=== PATIENT | female | born 1970 | race Caucasian/White ===

== ENCOUNTER 2017-04-06 22:30 | Emergency (ER) | payer MEDICAID ==
[2017-04-06 23:22] VITALS: BMI 25.9
[2017-04-06 23:25] VITALS: TEMP 98.6; O2SAT 100
[2017-04-06] MEDS ORDERED: Sodium Chloride 0.9% 1,000 ML IV STA (23:52)
[2017-04-06] MEDS ORDERED: diaZEpam 10 mg/2 ml Inj IVP ONE (23:56)
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
[2017-04-07 00:29] LABS: ADD MANUAL DIFF? NO
[2017-04-07 00:34] LABS: BASO # 0.01 K/mm3 (0.0-2.0); BASO % 0.2 % (0.0-3.0); EOS # 0.2 (0.0-0.7); EOS % 2.6 % (1.5-5.0); GRAN # 2.45 (1.4-6.5); GRAN % 42.1 % (50.0-68.0); HEMATOCRIT 34.5 % (36.0-48.0); LYMPH # 2.8 (1.2-3.4); LYMPH % 47.7 % (22.0-35.0); MEAN CELL VOLUME 70.4 fL (80.0-105.0); MEAN CORPUSCULAR HEMOGLOBIN 22.4 pg (25.0-35.0); MEAN CORPUSCULAR HGB CONC 31.9 g/dl (31.0-37.0); MONO # 0.4 (0.1-0.6); MONO % 7.4 % (1.0-6.0); PLATELET COUNT 292 10^3/uL (120.0-450.0); RED CELL DISTRIBUTION WIDTH 17.4 % (11.5-14.5); WHITE BLOOD COUNT 5.8 10^3/ul (4.5-11.0)
[2017-04-07 00:35] LABS: PH,URINE 6.5 (4.7-8.0); URINE BILIRUBIN NEGATIVE (NEGATIVE); URINE BLOOD SMALL (NEGATIVE); URINE GLUCOSE (UA) NEGATIVE (NEGATIVE); URINE KETONE NEGATIVE (NEGATIVE); URINE LEUKOCYTE ESTERASE NEGATIVE Leu/uL (NEGATIVE); URINE PROTEIN NEGATIVE mg/dL (<30 mg/dL); URINE UROBILINOGEN 0.2 E.U./dL (<1 E.U./dL)
[2017-04-07 00:58] LABS: ALB/GLOB RATIO 1.3 (1.1-1.8); ALKALINE PHOSPHATASE 50 U/L (38-133); ALT/SGPT 29 U/L (7-56); AST/SGOT 21 U/L (15-39); BILIRUBIN,TOTAL 0.2 mg/dL (0.2-1.3); BLOOD UREA NITROGEN 11 mg/dL (7-21); CARBON DIOXIDE 27 mmol/L (21-33); CHLORIDE 103 mmol/L (95-110); GFR AFRICAN-AMERICAN > 60; GLUCOSE,RANDOM 106 mg/dL (70-110); LIPASE 106 U/L (23-300); POTASSIUM 4.1 mmol/L (3.6-5.0); SODIUM 140 mmol/L (132-148); TOTAL PROTEIN 7.1 g/dL (5.8-8.3); URINE APPEARANCE CLEAR (CLEAR); URINE COLOR YELLOW (YELLOW)
[2017-04-07 01:01] LABS: URINE EPITHELIAL CELLS 0 - 2 /hpf (0-5); URINE RBC 0 - 2 /hpf (0-2); URINE WBC 0 - 2 /hpf (0-6)
--- NOTE | 2017-04-07 03:52 | CT ---
EXAM: CT Chest With Intravenous Contrast CLINICAL HISTORY: 46 years old, female; Pain; Abdominal pain; Generalized; Chest pain; Additional info: Abdominal pain/diarrhea/vomiting TECHNIQUE: Axial computed tomography images of the chest with intravenous contrast. This CT exam was performed using one or more of the following dose reduction techniques: automated exposure control, adjustment of the mA and/or kV according to patient size, and/or use of iterative reconstruction technique. Coronal and sagittal reformatted images were created and reviewed. CONTRAST: 140 mL of OMNI 350 administered intravenously. COMPARISON: No relevant prior studies available. FINDINGS: Limitations: Motion artifact - mild. Lungs: Minimal atelectasis. No consolidation. Pleural space: No pneumothorax. No significant effusion. Heart: No cardiomegaly. No significant pericardial effusion. Bones/joints: No acute fracture. Soft tissues: Unremarkable. Vasculature: Unremarkable. No aneurysm. Lymph nodes: No pathologically enlarged lymph nodes. IMPRESSION: 1.No acute findings. 2.Non-acute findings are described above. EXAM: CT Abdomen and Pelvis With Intravenous Contrast CLINICAL HISTORY: 46 years old, female; Pain; Abdominal pain; Generalized; Chest pain; Additional info: Abdominal pain/diarrhea/vomiting TECHNIQUE: Axial computed tomography images of the abdomen and pelvis with intravenous contrast. This CT exam was performed using one or more of the following dose reduction techniques: automated exposure control, adjustment of the mA and/or kV according to patient size, and/or use of iterative reconstruction technique. Coronal and sagittal reformatted images were created and reviewed. CONTRAST: 140 mL of OMNI 350 administered intravenously. COMPARISON: No relevant prior studies available. FINDINGS: Limitations: Motion artifact - mild. ABDOMEN: Liver: Unremarkable. No mass. Gallbladder and bile ducts: Gallbladder not visualized. No ductal dilation. Pancreas: No ductal dilation. No mass. Spleen: Mild splenomegaly, AP dimension. Adrenals: No mass. Kidneys and ureters: No mass. No hydronephrosis. Stomach and bowel: No definite mural thickening. No obstruction. Appendix: No findings to suggest acute appendicitis. PELVIS: Bladder: Unremarkable. Reproductive: IUD. 2.4 x 1.6 x 2.5 cm hypodense lesion within RIGHT ovary. 1.9 x 1.7 x 1.6 cm hypodense lesion within RIGHT ovary. ABDOMEN and PELVIS: Intraperitoneal space: No significant fluid collection. No free air. Bones/joints: No acute fracture. Soft tissues: Linear scar lower anterior abdominal/pelvic wall. Vasculature: Unremarkable. No aneurysm. Lymph nodes: No pathologically enlarged lymph nodes. IMPRESSION: 1. Probable RIGHT ovarian cysts. Consider ultrasound. 2. Incidental/non-acute findings are described above.
[2017-04-07 04:17] VITALS: BP 137/70; PULSE 70; RESP 17
--- NOTE | 2017-04-07 08:36 | RAD ---
PROCEDURE: Radiographs of the Lumbar Spine. HISTORY: lower back pain COMPARISON: No prior. FINDINGS: BONES: Normal curvature appreciated there is a borderline spondylolisthesis at L4-5, with L4 appearing marginally anterior to L5. No suspicious lytic or blastic change. DISC SPACES: Unremarkable. OTHER FINDINGS: Iodinated contrast material is identified excreted at the bilateral kidneys and ureters as well as in a distended urinary urinary bladder. IMPRESSION: Borderline spondylolisthesis L4-5. No definite acute fracture appreciated or suspicious lytic or blastic change. Follow-up MRI or CT may be performed if clinically warranted.
== END 2017-04-07 04:17 | disposition home or self-care (01) ==
LOC: ED 22:30
DX: S29.9XXA Unspecified injury of thorax, initial encounter (principal); V43.52XA Car driver injured in collision with other type car in traffic accident, initial encounter; Y92.410 Unspecified street and highway as the place of occurrence of the external cause; K29.70 Gastritis, unspecified, without bleeding; R11.2 Nausea with vomiting, unspecified; M54.5 Low back pain
CPT/HCPCS: 71260; 72110; 74177; 80053; 81001; 83690; 85025; 96361; 96374; 96375; 99284; J1885; J3360; J7040; Q9967

== ENCOUNTER 2017-07-15 17:52 | Inpatient (IN) | payer MEDICAID ==
[2017-07-15 17:52] VITALS: BMI 25.9
[2017-07-15 18:48] LABS: BASO # 0.01 K/mm3 (0.0-2.0); BASO % 0.2 % (0.0-3.0); EOS # 0.1 (0.0-0.7); EOS % 2.4 % (1.5-5.0); GRAN # 2.68 (1.4-6.5); GRAN % 54.5 % (50.0-68.0); HEMATOCRIT 38.1 % (36.0-48.0); LYMPH # 1.8 (1.2-3.4); LYMPH % 37.2 % (22.0-35.0); MEAN CELL VOLUME 73.6 fl (80.0-105.0); MEAN CORPUSCULAR HEMOGLOBIN 23.7 pg (25.0-35.0); MEAN CORPUSCULAR HGB CONC 32.3 g/dl (31.0-37.0); MONO # 0.3 (0.1-0.6); MONO % 5.7 % (1.0-6.0); PLATELET COUNT 259 10^3/uL (120.0-450.0); RED CELL DISTRIBUTION WIDTH 17.1 % (11.5-14.5); WHITE BLOOD COUNT 4.9 10^3/ul (4.5-11.0)
[2017-07-15 18:58] LABS: ALB/GLOB RATIO 1.3 (1.1-1.8); ALKALINE PHOSPHATASE 49 U/L (38-126); ALT/SGPT 45 U/L (7-56); AST/SGOT 19 U/L (14-36); BILIRUBIN,TOTAL 0.4 mg/dL (0.2-1.3); BLOOD UREA NITROGEN 19 mg/dL (7-21); CALCIUM 9.3 mg/dL (8.4-10.5); CARBON DIOXIDE 32 mmol/L (21-33); CHLORIDE 107 mmol/L (95-110); GFR AFRICAN-AMERICAN > 60; GLUCOSE,RANDOM 126 mg/dL (70-110); POTASSIUM 4.2 mmol/L (3.6-5.0); SODIUM 145 mmol/L (132-148); TOTAL PROTEIN 7.7 g/dL (5.8-8.3)
--- NOTE | 2017-07-15 19:40 | CARD ---
APPROVED REPORT EKG Measurement Heart [id number] <Conclusion> Normal sinus rhythm with sinus arrhythmia Normal ECG
[2017-07-15 19:47] LABS: PH,URINE 7.5 (4.7-8.0); URINE BILIRUBIN NEGATIVE (NEGATIVE); URINE BLOOD MODERATE (NEGATIVE); URINE GLUCOSE (UA) NEGATIVE (NEGATIVE); URINE KETONE NEGATIVE (NEGATIVE); URINE LEUKOCYTE ESTERASE NEGATIVE Leu/uL (NEGATIVE); URINE PROTEIN NEGATIVE mg/dL (<30 mg/dL); URINE UROBILINOGEN 0.2 E.U./dL (<1 E.U./dL)
[2017-07-15 19:58] LABS: URINE APPEARANCE SL CLOUDY (CLEAR); URINE COLOR YELLOW (YELLOW)
[2017-07-15 20:02] LABS: URINE BACTERIA MOD (NEG)
[2017-07-15 20:03] LABS: URINE AMORPHOUS SEDIMENT MODERATE
--- NOTE | 2017-07-15 20:35 | ED PDOC ---
Arrival/HPI - General Chief Complaint: Psychiatric Evaluation Time Seen by Provider: 07/15/17 18:21 Historian: Patient - History of Present Illness Narrative History of Present Illness (Text): 07/15/17 20:35 46-year-old female presents today sent in by her primary care physician for depression. Patient is stating that she wants to and she has no reason to live. Patient denies chest pain or shortness of breath. Denies abdominal pain. Denies dizziness or weakness. Complaining of suicidal ideations. Patient states she has no reason to live because her and her son left her. Past Medical History - Provider Review Nursing Documentation Reviewed: Yes - Travel History Have you recently traveled outside [place] w/in the past 3 mons?: No - Infectious Disease Hx of Infectious Diseases: None - Past Medical History Past Medical History: No Previous - Cardiac Hx Hypertension: Yes - Hematological/Oncological Hx Anemia: Yes - Psychiatric Hx Depression: No Hx Substance Use: No - Past Surgical History Past Surgical History: No Previous - Surgical History Hx Cholecystectomy: Yes - Anesthesia Hx Anesthesia: Yes Hx Anesthesia Reactions: No - Suicidal Assessment Suicide Risk Precautions: None Family/Social History - Physician Review Nursing Documentation Reviewed: Yes Family/Social History: Unknown Family HX Smoking Status: Never Smoked Hx Alcohol Use: No Hx Substance Use: No Hx Substance Use Treatment: No Allergies/Home Meds Allergies/Adverse Reactions: Allergies No Known Allergies Allergy (Verified 07/15/17 18:13) Home Medications: Home Meds Medication Instructions Recorded Confirmed No Known Home Med 07/15/17 07/15/17 Review of Systems - Review of Systems Constitutional: absent: Fatigue, Fevers Respiratory: absent: SOB, Cough Cardiovascular: absent: Chest Pain, Palpitations Gastrointestinal: absent: Abdominal Pain, Nausea, Vomiting Genitourinary Female: absent: Dysuria Musculoskeletal: absent: Arthralgias Skin: absent: Rash, Pruritis Psychiatric: Depression, Suicidal Ideation Physical Exam Vital Signs Reviewed: Yes Vital Signs Temp Pulse Resp BP Pulse Ox 07/15/17 19:00 77 17 134/68 98 07/15/17 18:21 99.7 F H 80 20 157/105 H 98 Temperature: Afebrile Blood Pressure: Hypertensive Pulse: Regular Respiratory Rate: Normal Appearance: Positive for: Well-Appearing, Non-Toxic, Comfortable Pain Distress: None Mental Status: Positive for: Alert and Oriented X 3 - Systems Exam Head: Present: Atraumatic Mouth: Present: Moist Mucous Membranes Respiratory/Chest: Present: Clear to Auscultation Cardiovascular: Present: Regular Rate and Rhythm Abdomen: No: Tenderness Neurological: Present: GCS=15 Skin: Present: Warm, Dry, Normal Color. No: Rashes Psychiatric: Present: Alert, Oriented x 3 Medical Decision Making ED Course and Treatment: 07/15/17 20:36 Patient is nontoxic well-appearing in no distress vital signs are stable. CBC WNL CMP WNL Tylenol WNL Salicylate WNL Alcohol level WNL Urine drug screen wnl UA; + blood cxr: wnl ekg normal sinus rhythm with sinus arrhythmia at 78beats per minute no ST elevations normal axis pt is medically cleared for PES evaluation Patient was seen and evaluated by PES screener: lillie patient signed voluntarily to psychiatric floor Impression;Depression admit to behavioral health floor - Lab Interpretations Lab Results: 07/15/17 18:35 07/15/17 18:35 Lab Results 07/15/17 19:15: Urine Opiates Screen Negative, Urine Methadone Screen Negative, Ur Barbiturates Screen Negative, Ur Phencyclidine Scrn Negative, Ur Amphetamines Screen Negative, U Benzodiazepines Scrn Negative, U Oth Cocaine Metabols Negative, U Cannabinoids Screen Negative 07/15/17 19:15: Urine Color Yellow, Urine Appearance Sl cloudy, Urine pH 7.5, Ur Specific [place] 1.010, Urine Protein Negative, Urine Glucose (UA) Negative, Urine Ketones Negative, Urine Blood Moderate H, Urine Nitrate Negative, Urine Bilirubin Negative, Urine Urobilinogen 0.2, Ur Leukocyte Esterase Negative, Urine RBC 2 - 5, Urine WBC 2 - 5, Ur Epithelial Cells 3 - 4, Amorphous Sediment Moderate, Urine Bacteria Mod 07/15/17 18:35: Alcohol, Quantitative < 10 07/15/17 18:35: Salicylates < 1 L, Acetaminophen < 10.0 L 07/15/17 18:35: Sodium 145, Potassium 4.2, Chloride 107, Carbon Dioxide 32, Anion Gap 10, BUN 19, Creatinine 0.8, Est GFR ( Amer) > 60, Est GFR (Non- Af Amer) > 60, Random Glucose 126 H, Calcium 9.3, Total Bilirubin 0.4, AST 19, ALT 45, Alkaline Phosphatase 49, Total Protein 7.7, Albumin 4.3, Globulin 3.4, Albumin/Globulin Ratio 1.3 07/15/17 18:35: WBC 4.9, RBC 5.18, Hgb 12.3, Hct 38.1, MCV 73.6 L, MCH 23.7 L, MCHC 32.3, RDW 17.1 H, Plt Count 259, Gran % 54.5, Lymph % (Auto) 37.2 H, [place] % (Auto) 5.7, Eos % (Auto) 2.4, Baso % (Auto) 0.2, Gran # 2.68, Lymph # 1.8, [place]ukes # 0.3, Eos # 0.1, Baso # 0.01 - RAD Interpretation Radiology Orders: 07/15/17 18:23 CHEST PORTABLE [RAD] Stat - Medication Orders Current Medication Orders: Acetaminophen (Tylenol 325mg Tab) 650 mg PO Q4H PRN PRN Reason: Pain, Mild (1-3) Al Hydrox/Mg Hydrox/Simethicone (Maalox Plus 30 Ml) 30 ml PO DAILY PRN PRN Reason: Upset Stomach Citalopram Hydrobromide (Celexa) 10 mg PO DAILY LIBIA Lorazepam (Ativan) 1 mg PO HS LIBIA PRN Reason: Protocol Magnesium Hydroxide (Milk Of Magnesia) 30 ml PO DAILY PRN PRN Reason: Constipation Zaleplon (Sonata) 5 mg PO HS PRN PRN Reason: Insomnia Disposition/Present on Arrival - Present on Arrival Any Indicators Present on Arrival: No History of DVT/PE: No History of Uncontrolled Diabetes: No Urinary Catheter: No History of Decub. Ulcer: No History Surgical Site Infection Following: None - Disposition Have Diagnosis and Disposition been Completed?: Yes Diagnosis: Depression Disposition: HOSPITALIZED Disposition Time: 21:00 Patient Plan: Admission Patient Problems: Current Active Problems Problem Status Onset Depression Acute Condition: FAIR
[2017-07-15] MEDS ORDERED: Magnesium Hydroxide Susp 30 ml UD PO PRN (21:08)
[2017-07-15] MEDS ORDERED: Alum-Mag Hydrox-Simethicone Susp (30 mL) PO PRN (21:08)
--- NOTE | 2017-07-16 00:06 | PCM.BM ---
<Terrence Whipple - Last Filed: 07/16/17 00:03> Treatment Plan Problems - Problems identified on initial assessmt DEPRESSION Date Initiated: 07/15/17 Time Initiated: 23:00 Assessment reference: NA Status: Active SUICIDAL IDEATION Date Initiated: 07/15/17 Time Initiated: 23:00 Assessment reference: NA Status: Active Treatment assets and liabiliti Patient Assests: adapts well, cooperative, educated, self-reliant, ADL independent, negotiates basic needs, cognitively intact Patient Liabilities: live alone, financial problems, medical problems - Milieu Protocol Maintain good personal hygiene: daily Encourage regular showers, every shift Remind patient to perform daily oral care, every shift Assist patient to perform ADL's Maintain personal safety: every shift Educate patient to report safety concerns to staff, every shift Monitor environment for contraband/sharps Medication safety: Monitor for expected outcome, potential side effects: every shift, Assess barriers to learning: every shift, Assess readiness for medication education: every shift Family Contact Family involvement: Famliy/SO not involved ( AND 2 SONS DOESN'T CARE FOR HER) Family contact: Patient agrees to contact Discharge/Continuing Care - Education Needs Education Needs: Patient Medication, Patient Diagnosis/Disease Process, Patient Coping Skills, Patient Placement options, Patient Community resources, Patient Activities of Daily Living, Patient Health Practices/Safety - Discharge Discharge Criteria: Tolerates medication w/o severe side effects, Free of Suicidal thoughts, Free of paranoid thoughts, Normal sleep pattern <Geovani Davies - Last Filed: 07/22/17 16:39> - Diagnosis (1) Depression Status: Acute Interventions: 07/22/17 16:39 * Assess/adjust medications daily and /or as needed * Discuss risks, benefits, side effects and alternatives of medications * See patient on an individual basis 7x/week to assess level of suicidal thoughts *
[2017-07-16 07:54] LABS: CHOLESTEROL 168 mg/dL (130-200); GLUCOSE,FASTING 95 mg/dL (65-110)
--- NOTE | 2017-07-16 08:55 | RAD ---
HISTORY: PEs COMPARISON: No prior. FINDINGS: LUNGS: No active pulmonary disease. PLEURA: No significant pleural effusion identified, no pneumothorax apparent. CARDIOVASCULAR: Normal. OSSEOUS STRUCTURES: No significant abnormalities. VISUALIZED UPPER ABDOMEN: Normal. OTHER FINDINGS: None. IMPRESSION: No active disease.
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
--- NOTE | 2017-07-17 21:07 | PN ---
SUBJECTIVE: The patient is a 46-year-old or Dutch female who had been depressed. She appears to be still melodramatic, lacking in insight, but less histrionic than yesterday. This was taken to me that her mood is improving somewhat. She is being maintained on Ativan 1 mg at bedtime, Celexa 10 mg per day, Effexor 37.5 mg per day, Risperdal 0.25 mg at bedtime. OBJECTIVE: Blood pressure 94/45, pulse 62, temperature 97, respiratory rate 20. ASSESSMENT AND PLAN: I have tried to convey to the patient that if she is able to maintain a state of mood stability and behavioral control over the weekend, she will be a candidate for discharge on Thursday. Geovani Davies MD/ PhD
[2017-07-18] MEDS: Pantoprazole 40 mg EC Tab PO SCH (09:59)
--- NOTE | 2017-07-18 16:41 | PCM.PYCHPN ---
Psychiatric Progress Note - Psychiatric Progress Note Patient seen today, length of contact: 25 min Patient Chief Complaint: "feeling good" Problems Identified/Issues Discussed: I recent notes and met with patient at bedside in the quiet room. Patient is fairly cooperative. I ask her questions about her orientation she is unaware of which month it is, states "I forget". However she is able to tell me that it is 2016. Patient is guarded and her affect is constricted though she tells me that she is feeling good. Reports that her medications are "OK". She denies any side effects. Indicate that she didn't go to sleep until 2 AM. Patient denies any suicidal thoughts and feels "safe on the unit". Staff notes indicate the patient seems brighter, more appropriate and pleasant. Seems anxious but cooperative. There are no behavioral issues overnight. Diagnostic Results: Major Depressive Disorder, Severe Medication Change: No Medical Record Reviewed: Yes Mental Status Examination - Cognitive Function Orientation: Person, Place Memory: Impaired Attention: Poor Concentration: Poor - Mood Mood: Other (feeling good) - Affect Affect: Constricted - Speech Speech: Soft - Suicidal Ideation Suicidal Ideation: No - Homicidal Ideation Homicidal Ideation: No Goal/Treatment Plan - Goal/Treatment Plan Progress Toward Problem(s) and Goals/Treatment Plan: * c/w current tx and plan * Vitals reviewed and noted below: Selected Entries 07/15/17 07/16/17 07/16/17 23:40 07:18 16:00 Temperature 98.1 F 97.8 F Pulse Rate 71 20 L 62 Respiratory 20 20 Rate Blood Pressure 146/69 97/45 L 94/45 L
[2017-07-19] MEDS: Pantoprazole 40 mg EC Tab PO SCH (08:28)
--- NOTE | 2017-07-19 09:40 | PCM.PYCHPN ---
Psychiatric Progress Note - Psychiatric Progress Note Patient seen today, length of contact: 25 min Patient Chief Complaint: "a little better" Problems Identified/Issues Discussed: I recent notes and met with patient at bedside. Patient is fairly cooperative however she remains guarded. She reports that she she feeling a little better. Her affect is constricted. Feels medications make her tired, denies other side effects, new discomfort or pain. Patient denies any suicidal thoughts. Staff notes indicate the patient has been labile and argumentative at times. She attends group but minimally participates. Seems anxious. There were no behavioral issues overnight. Diagnostic Results: Major Depressive Disorder, Severe Medication Change: No Medical Record Reviewed: Yes Mental Status Examination - Cognitive Function Orientation: Person, Place Memory: Impaired Attention: Poor Concentration: Poor - Mood Mood: Other ("a little better") - Affect Affect: Constricted - Speech Speech: Soft - Suicidal Ideation Suicidal Ideation: No - Homicidal Ideation Homicidal Ideation: No Goal/Treatment Plan - Goal/Treatment Plan Progress Toward Problem(s) and Goals/Treatment Plan: * c/w current tx and plan * No new weekend labs * Vitals reviewed and noted below: Selected Entries 07/18/17 07/18/17 06:53 16:00 Temperature 98.4 F Pulse Rate 74 73 Respiratory 17 Rate Blood Pressure 125/65 96/52 L O2 Sat by Pulse 99 Oximetry
[2017-07-19 11:45] LABS: TRANSFERRIN 230.4 mg/dL (206-381)
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
[2017-07-20] MEDS: Pantoprazole 40 mg EC Tab PO SCH (14:34)
--- NOTE | 2017-07-21 00:59 | PN ---
DATE: SUBJECTIVE: The patient is a 46-year-old distraught, or Guinean female who had been depressed and hyperreactive. The patient's mood and affect are improving. She is distraught over the separation of her children (teenagers), (who themselves had history of problematic behaviors), who have been removed from her by [facility] and given to custody of her / ). Her mood and affect appear to be improving. She appears to be less melodramatic, more spontaneous and more interactive. She is not suicidal or homicidal. She is being maintained on Ativan 1 mg at bedtime, Effexor 37.5 mg daily, Risperdal 0.25 mg at bedtime and Sonata 5 mg p.r.n. PHYSICAL EXAMINATION: VITAL SIGNS: Blood pressure 118/60, pulse 74, temperature 98.2 and respiratory rate 20. The patient has been concerned about the discontinuation of her food stamps. Geovani Davies MD/ PhD
[2017-07-21 06:53] VITALS: BP 116/63; PULSE 73; RESP 19; TEMP 98.3; O2SAT 100
[2017-07-21] MEDS: Pantoprazole 40 mg EC Tab PO SCH (08:42)
--- NOTE | 2017-07-21 10:12 | PN ---
DATE: 07/20/2017 SUBJECTIVE: A 46-year-old female. The patient seems better, seems less depressed, comfortable. No physical complaints other than her back problem and she wants to go home. According to the patient she feel better. No other complaints. No depression signs. At this moment, she feels better than the day 1 she came in. PHYSICAL EXAMINATION: VITAL SIGNS: Temperature 97.4, heart rate 74, blood pressure 112/65, respirations 20, and saturation 97%. HEAD AND NECK: Normal. No JVD. No thyromegaly. CHEST: Clear good air entry. CARDIAC: First sound and second sound normal. ABDOMEN: Soft and nontender. EXTREMITIES: No edema. NEUROLOGIC: Normal. IMPRESSION AND PLAN: 1. Depression, possible bipolar disorder. Continue therapy as per psychiatrist. 2. Chronic back pain. Continue Protonix, Zanaflex, physical therapy, ibuprofen p.r.n., and we will follow up clinically. The patient's current medications is follows: She is getting as per psychiatrist Ativan 1 mg at bedtime and 1 mg every 4 hours p.r.n. She is getting Effexor 37.5 mg p.o. daily. She is getting also risperidone 0.25 mg p.o. at bedtime. Also sonata 5 mg at bedtime. Other medications that the patient takes is Bactroban, Colace, Maalox, milk of magnesia, Motrin, Protonix, Tylenol, and Zanaflex. Continue current therapy. Followup clinically. Kane Ashraf MD
== END 2017-07-21 14:59 | disposition home or self-care (01) | DRG 426 ==
LOC: ED 17:52 → ERH 21:07 → PSYC 21:54
PROVIDERS: ADMIT Psychiatry & Neurology Psychiatry; ATTEND Psychiatry & Neurology Addiction Medicine
PROC: GZ3ZZZZ Medication Management (ICD-10-PCS; principal; 2017-07-16)
DX: F32.9 Major depressive disorder, single episode, unspecified (principal); R45.851 Suicidal ideations; F41.9 Anxiety disorder, unspecified; M54.9 Dorsalgia, unspecified; G89.29 Other chronic pain; G47.00 Insomnia, unspecified

== ENCOUNTER 2018-03-08 08:55 | Emergency (ER) | payer OTHER, MEDICAID ==
[2018-03-08 08:55] VITALS: BMI 25.9
[2018-03-08 09:25] VITALS: PULSE 72; O2SAT 99
[2018-03-08] MEDS ORDERED: Methocarbamol 500 MG Tab PO STA (09:50)
[2018-03-08] MEDS ORDERED: Oxycodone/Acetaminophen 5/325 mg Tab PO STA (09:55)
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
[2018-03-08 12:45] VITALS: BP 123/69; RESP 18; TEMP 98.2
== END 2018-03-08 11:55 | disposition home or self-care (01) ==
LOC: ED 08:55
DX: S13.4XXA Sprain of ligaments of cervical spine, initial encounter (principal); S16.1XXA Strain of muscle, fascia and tendon at neck level, initial encounter; V49.49XA Driver injured in collision with other motor vehicles in traffic accident, initial encounter; Y92.410 Unspecified street and highway as the place of occurrence of the external cause